=== PATIENT | female | born 1945 | race African-American/Black ===

== ENCOUNTER 2017-06-12 18:29 | Emergency (ER) | payer MEDICARE ==
[2017-06-12] MEDS ORDERED: Metoprolol Tartrate 5 MG/5 ML VIAL ONE ×2 (18:54→20:05)
[2017-06-12 19:20] LABS: #Lymphocytes 2.2 thou/uL (1.20-3.40); #Monocytes 0.5 thou/uL (0.11-0.59); #Neutrophils 3.3 thou/uL (1.40-6.50); %Basophils 0.8 % (0.0-1.0); %Eosinophils 0.1 % (0.0-10.0); %Lymphocytes 36.5 % (21.0-51.0); %Monocytes 8.2 % (0.0-10.0); %Neutrophils 54.4 % (42.0-75.0); Hemoglobin 13.9 g/dL (12.0-16.0); Mean Corpuscular HGB CONC 32.1 g/dL (32.0-36.0); Mean Corpuscular Hemoglobin 30.7 pg (27.0-31.0); Mean Corpuscular Volume 95.8 fl (81.0-99.0); Mean Platelet Volume 7.8 fL (7.4-10.4); Platelet Count 259 thou/uL (130-400); RBC Distribution Width 12.9 % (11.5-14.5); Red Blood Cell (RBC) Count 4.54 mill/uL (4.20-5.40)
[2017-06-12 19:35] LABS: ALT (SGPT) 11 U/L (8-55); AST (SGOT) 18 U/L (5-34); Albumin 3.9 g/dL (3.4-4.8); Alkaline Phosphatase 88 U/L (40-150); Anion Gap 17 mmol/L (10-20); BUN (Urea Nitrogen) 22 mg/dL (9.8-20.1); Bilirubin, Total 0.9 mg/dL (0.2-1.2); CK (CPK) 64 U/L (29-168); Calc. Creatinine Clearance 0 mL/min (70-130); Calcium 9.3 mg/dL (7.8-10.44); Carbon Dioxide 23 mmol/L (23-31); Chloride 101 mmol/L (98-107); Estimated GFR-MDRD 54; Globulin 3.9 g/dL (2.4-3.5); Glucose 129 mg/dL (83-110); Lipase 43 U/L (8-78); Potassium 3.9 mmol/L (3.5-5.1); Protein, Total 7.8 g/dL (6.0-8.3); Sodium 137 mmol/L (136-145)
[2017-06-12 19:36] LABS: CKMB 0.7 ng/mL (0-6.6); Troponin I 0.019 ng/mL (< 0.028)
--- NOTE | 2017-06-12 19:39 | RAD ---
CHEST ONE VIEW 06/12/17 HISTORY: Chest pain. Chest tightness. Hypertension. COMPARISON: None. FINDINGS: There appears to be air underneath the left and right hemidiaphragm. Possibility of pneumoperitoneum cannot be excluded. Abdomen and pelvic CT is recommended. Sternotomy wires are identified. Atherosclerosis of the aorta. Heart is enlarged. Pulmonary vessels a re slightly prominent. Small left sided pleural effusion with adjacent parenchymal changes. No pneumo thorax. IMPRESSION: 1. Questionable pneumoperitoneum. Abdomen and pelvic CT is recommended. 2. Left pleural effusion with adjacent parenchymal changes. POS: [facility]
== END 2017-06-12 20:34 | disposition short-term general hospital (02) ==
LOC: NAV ERS 18:29
DX: I10 Essential (primary) hypertension (principal); E03.9 Hypothyroidism, unspecified; E78.5 Hyperlipidemia, unspecified; I25.10 Atherosclerotic heart disease of native coronary artery without angina pectoris; K21.9 Gastro-esophageal reflux disease without esophagitis; Z79.899 Other long term (current) drug therapy
CPT/HCPCS: 71010; 80053; 82553; 83690; 83880; 84484; 85025; 93005; 96374; 96376

== ENCOUNTER 2018-06-03 16:56 | Emergency (ER) | payer MEDICARE ==
[2018-06-03] MEDS ORDERED: cloNIDine 0.1 MG TAB ONE (18:46)
[2018-06-03 18:47] LABS: #Lymphocytes 2.4 thou/uL (1.20-3.40); #Monocytes 0.4 thou/uL (0.11-0.59); #Neutrophils 2.5 thou/uL (1.40-6.50); %Basophils 0.7 % (0.0-1.0); %Eosinophils 0.5 % (0.0-10.0); %Lymphocytes 44.6 % (21.0-51.0); %Monocytes 7.5 % (0.0-10.0); %Neutrophils 46.6 % (42.0-75.0); Hemoglobin 13.9 g/dL (12.0-16.0); Mean Corpuscular HGB CONC 32.4 g/dL (32.0-36.0); Mean Corpuscular Hemoglobin 31.2 pg (27.0-31.0); Mean Corpuscular Volume 96.1 fL (78.0-98.0); Mean Platelet Volume 7.2 fL (7.4-10.4); Platelet Count 218 thou/uL (130-400); Red Blood Cell (RBC) Count 4.46 mill/uL (4.20-5.40); White Blood Cell (WBC) Count 5.4 thou/uL (4.8-10.8)
[2018-06-03 19:08] LABS: ALT (SGPT) 10 U/L (8-55); AST (SGOT) 15 U/L (5-34); Alkaline Phosphatase 76 U/L (40-150); Anion Gap 14 mmol/L (10-20); BUN (Urea Nitrogen) 11 mg/dL (9.8-20.1); Bilirubin, Total 1.1 mg/dL (0.2-1.2); Calc. Creatinine Clearance 0 mL/min (70-130); Calcium 9.7 mg/dL (7.8-10.44); Carbon Dioxide 25 mmol/L (23-31); Chloride 102 mmol/L (98-107); Estimated GFR-MDRD 56; Globulin 3.3 g/dL (2.4-3.5); Glucose 108 mg/dL (83-110); Potassium 3.9 mmol/L (3.5-5.1); Protein, Total 7.3 g/dL (6.0-8.3); Sodium 137 mmol/L (136-145)
[2018-06-03 19:10] LABS: Troponin I 0.019 ng/mL (< 0.028)
[2018-06-03] MEDS ORDERED: Carvedilol 3.125 MG TAB ONE (19:22)
[2018-06-03] MEDS ORDERED: hydrALAZINE 20 MG/ML VIAL ONE (19:45)
--- NOTE | 2018-06-03 19:54 | RAD ---
TWO VIEWS CHEST 06/03/18 HISTORY: High blood pressure and chest pain. FINDINGS: Mild blunting of the left costophrenic angle suggests small volume left pleural fluid and/or pleural scar. Midline sternotomy wires are noted. There is atherosclerotic calcification of the aortic arch. There is no pneumothorax, lobar consolidation or alveolar edema. IMPRESSION: Mild blunting of the left costophrenic angle. POS: [facility]
--- NOTE | 2018-06-03 20:42 | CT ---
CT OF THE HEAD WITHOUT CONTRAST: 06/03/18 COMPARISON: 08/05/12. HISTORY: Headache and chest tightness, hypertension and dementia. TECHNIQUE: Axial CT imaging at 5 mm intervals from vertex through skull base without contrast. FINDINGS: There is atherosclerotic calcification of the cavernous carotid arteries. No acute osseous abnormalit y. Imaged paranasal sinuses/mastoid air cells grossly unremarkable. No intracranial hemorrhage, midl ine shift, mass effect or ventricular enlargement. IMPRESSION: No acute findings. POS: [facility]
[2018-06-03 23:20] LABS: Troponin I 0.028 ng/mL (< 0.028)
[2018-06-04] MEDS ORDERED: Losartan Potassium 50 MG TAB ONE (07:01)
[2018-06-04] MEDS ORDERED: Carvedilol 3.125 MG TAB ONE (07:01)
[2018-06-04] MEDS ORDERED: Hydrochlorothiazide 25 MG TAB ONE (07:01)
== END 2018-06-04 07:31 | disposition short-term general hospital (02) ==
LOC: NAV ERS 16:56
DX: R07.89 Other chest pain (principal); F03.90 Unspecified dementia, unspecified severity, without behavioral disturbance, psychotic disturbance, mood disturbance, and anxiety; I16.0 Hypertensive urgency; I25.10 Atherosclerotic heart disease of native coronary artery without angina pectoris; E03.9 Hypothyroidism, unspecified; E78.5 Hyperlipidemia, unspecified; I10 Essential (primary) hypertension; K21.9 Gastro-esophageal reflux disease without esophagitis; Z79.899 Other long term (current) drug therapy
CPT/HCPCS: 36415; 70450; 71046; 80053; 84443; 84484; 85025; 93005; 94760; 96374; J0360

== ENCOUNTER 2018-09-01 14:56 | Emergency (ER) | payer MEDICARE ==
--- NOTE | 2018-09-01 16:22 | RAD ---
TWO VIEW RIGHT HUMERUS TWO VIEW RIGHT ELBOW: Indication: Fall with injury, pain. FINDINGS: There is moderate osteoarthritis. No acute humeral fracture. Frontal and lateral views of the elbow r eveal no displaced fracture or joint capsular distention. IMPRESSION: No acute osseous abnormality. POS: [facility]
== END 2018-09-01 16:50 | disposition home or self-care (01) ==
LOC: NAV ERS 14:56
DX: M79.601 Pain in right arm (principal); I10 Essential (primary) hypertension; I25.10 Atherosclerotic heart disease of native coronary artery without angina pectoris; E03.9 Hypothyroidism, unspecified; E78.5 Hyperlipidemia, unspecified; K21.9 Gastro-esophageal reflux disease without esophagitis; Z79.899 Other long term (current) drug therapy; W06.XXXA Fall from bed, initial encounter

== ENCOUNTER 2019-01-26 13:40 | Emergency (ER) | payer MEDICARE ==
[2019-01-26 15:25] LABS: #Eosinphils 0.1 thou/uL (0.0-0.7); #Monocytes 0.5 thou/uL (0.11-0.59); #Neutrophils 2.1 thou/uL (1.40-6.50); %Basophils 0.8 % (0.0-1.0); %Eosinophils 1.3 % (0.0-10.0); %Lymphocytes 42.6 % (21.0-51.0); %Monocytes 11.5 % (0.0-10.0); %Neutrophils 43.8 % (42.0-75.0); Hemoglobin 11.3 g/dL (12.0-16.0); Mean Corpuscular HGB CONC 32.9 g/dL (32.0-36.0); Mean Corpuscular Hemoglobin 30.2 pg (27.0-31.0); Mean Platelet Volume 6.8 fL (7.4-10.4); Platelet Count 198 thou/uL (130-400); Red Blood Cell (RBC) Count 3.75 mill/uL (4.20-5.40); White Blood Cell (WBC) Count 4.7 thou/uL (4.8-10.8)
[2019-01-26 15:31] LABS: ALT (SGPT) 10 U/L (8-55); AST (SGOT) 14 U/L (5-34); Albumin 3.6 g/dL (3.4-4.8); Alkaline Phosphatase 84 U/L (40-150); Anion Gap 14 mmol/L (10-20); BUN (Urea Nitrogen) 22 mg/dL (9.8-20.1); Bilirubin, Total 0.6 mg/dL (0.2-1.2); Calc. Creatinine Clearance 0 mL/min (70-130); Calcium 8.8 mg/dL (7.8-10.44); Carbon Dioxide 26 mmol/L (23-31); Chloride 100 mmol/L (98-107); Estimated GFR-MDRD 34; Globulin 3.3 g/dL (2.4-3.5); Glucose 104 mg/dL (83-110); Magnesium 2.1 mg/dL (1.6-2.6); Potassium 3.5 mmol/L (3.5-5.1); Protein, Total 6.9 g/dL (6.0-8.3); Sodium 136 mmol/L (136-145)
== END 2019-01-26 16:28 | disposition home or self-care (01) ==
LOC: NAV ERS 13:40
DX: E86.0 Dehydration (principal); R79.89 Other specified abnormal findings of blood chemistry; I25.10 Atherosclerotic heart disease of native coronary artery without angina pectoris; E03.9 Hypothyroidism, unspecified; E78.5 Hyperlipidemia, unspecified; I10 Essential (primary) hypertension; K21.9 Gastro-esophageal reflux disease without esophagitis; Z79.899 Other long term (current) drug therapy
CPT/HCPCS: 80053; 83735; 85025; 93005; 94760

== ENCOUNTER 2020-02-29 18:04 | Emergency (ER) | payer MEDICARE ==
[~2020-02-29 18:04] MED LIST: Iopamidol 370 76% 100 ML VIAL ONE
--- NOTE | 2020-02-29 18:44 | CT ---
CT BRAIN WITHOUT CONTRAST: History: Altered mental status Comparison: 06-03-18 FINDINGS: No acute hemorrhage or infarct. No midline shift or mass effect. Mild atrophy. Moderate volume fluid within the left mastoids. Remainder of the Paranasal sinuses are clear. IMPRESSION: Chronic findings. No acute hemorrhage or infarct. POS: [facility]
[2020-02-29 18:45] LABS: INR-International Normal Ratio 1.1; PTT 32.2 sec (22.9-36.1); Prothrombin Time 14.1 sec (12.0-14.7)
[2020-02-29 18:54] LABS: ALT (SGPT) 9 U/L (8-55); AST (SGOT) 17 U/L (5-34); Albumin 3.7 g/dL (3.4-4.8); Alkaline Phosphatase 54 U/L (40-110); Anion Gap 16 mmol/L (10-20); BUN (Urea Nitrogen) 13 mg/dL (9.8-20.1); Calc. Creatinine Clearance 0 mL/min (70-130); Calcium 8.8 mg/dL (7.8-10.44); Carbon Dioxide 24 mmol/L (23-31); Chloride 95 mmol/L (98-107); Estimated GFR-MDRD 23; Globulin 3.2 g/dL (2.4-3.5); Glucose 118 mg/dL (83-110); Protein, Total 6.9 g/dL (6.0-8.3); Sodium 132 mmol/L (136-145)
[2020-02-29 18:56] LABS: Acetaminophen Less than 6.0 mcg/mL (10.0-30.0); Alcohol Less than 10 mg/dL (Less than 10); Lipase 58 U/L (8-78); Salicylate Less than 8.0 mg/dL (15.0-30.0)
[2020-02-29 19:11] LABS: CKMB 0.7 ng/mL (0-6.6); Mean Corpuscular HGB CONC 32.9 g/dL (32.0-36.0); Mean Corpuscular Hemoglobin 33.2 pg (27.0-31.0); Mean Platelet Volume 6.9 fL (7.4-10.4); Platelet Count 184 thou/uL (130-400); RBC Distribution Width 13.9 % (11.5-14.5); Red Blood Cell (RBC) Count 3.32 mill/uL (4.20-5.40); White Blood Cell (WBC) Count 4.4 thou/uL (4.8-10.8)
--- NOTE | 2020-02-29 19:11 | CT ---
Exam: CTA neck with contrast CTA head with contrast HISTORY: Altered mental status COMPARISON: None TECHNIQUE: 1. Multiple contiguous axial images were obtained and a CTA of the neck with contrast. 3-D sagittal a nd coronal MIP reformats were performed. 2. Multiple contiguous axial images were obtained and a CTA of the head with contrast. 3-D sagittal a nd coronal MIP reformats were performed. FINDINGS: CTA NECK: Aortic arch: Normal origin of the carotid arteries from the arch. No significant atherosclerotic dise ase of the subclavian arteries. Right common carotid artery: No significant atherosclerotic disease or narrowing Left common carotid artery: No significant atherosclerotic disease or narrowing Right internal carotid artery: Mild proximal atherosclerotic disease with less than 10% stenosis per NASCET criteria Right external carotid artery: No significant atherosclerotic disease or narrowing Left internal carotid artery: Mild proximal atherosclerotic disease with less than 10% stenosis per NASCET criteria Left external carotid artery: No significant atherosclerotic disease or narrowing Right cervical vertebral artery: No significant atherosclerotic disease or narrowing Left cervical vertebral artery: No significant atherosclerotic disease or narrowing No cervical adenopathy. The lung apices are unremarkable. Degenerative changes are seen in the spine. The patient is status post sternotomy. CTA HEAD: Moderate diffuse nonfocal atherosclerotic disease is seen in the cavernous portion of both internal c arotid arteries. Right intracranial internal carotid artery: Patent without narrowing or occlusion Right anterior cerebral artery: Patent without narrowing or occlusion Right middle cerebral artery: Patent without narrowing or occlusion Left intracranial internal carotid artery: Patent without narrowing or occlusion Left anterior cerebral artery: Patent without narrowing or occlusion Left middle cerebral artery: Patent without narrowing or occlusion No aneurysmal dilatation is seen in the anterior circulation. Right vertebral artery: Patent without narrowing or occlusion Left vertebral artery: Patent without narrowing or occlusion Basilar artery: Patent without narrowing or occlusion The posterior cerebral arteries and cerebellar arteries are patent without narrowing or occlusion. No aneurysmal dilatation is seen in the posterior circulation. IMPRESSION: 1. Mild atherosclerotic disease surrounding both carotid bifurcations without evidence of hemodynamic ally significant stenosis 2. No significant CTA abnormality of the head
[2020-02-29 19:12] LABS: Potassium 2.9 mmol/L (3.5-5.1)
[2020-02-29 19:23] LABS: #Lymphocytes 2.2 thou/uL (1.20-3.40); #Monocytes 0.2 thou/uL (0.11-0.59); #Neutrophils 2.1 thou/uL (1.40-6.50); %Basophils 0.9 % (0.0-1.0); %Eosinophils 0.7 % (0.0-10.0); %Lymphocytes 47.8 % (21.0-51.0); %Monocytes 4.2 % (0.0-10.0); %Neutrophils 46.5 % (42.0-75.0)
[2020-02-29] MEDS ORDERED: Potassium Chloride 20 MEQ TAB ONE (19:24)
[2020-02-29] MEDS ORDERED: Sodium Chloride 0.9% 1,000 ML ONE (19:24)
[2020-02-29] MEDS ORDERED: Aspirin Chewable 81 MG TAB ONE (19:24)
--- NOTE | 2020-02-29 19:37 | RAD ---
EXAM: Single view of the chest HISTORY: Altered mental status COMPARISON: 06/12/2017 FINDINGS: Single view of the chest shows an enlarged but stable cardiomediastinal silhouette. The pa tient is status post sternotomy. There is obscurity of the left hemidiaphragm which may represent a pleural effusion and/or infiltrate. Degenerative changes are seen in the spine. IMPRESSION: Left pleural effusion versus infiltrate
[2020-02-29 19:38] LABS: Bilirubin Negative (Negative); Blood, Urine Small (Negative); Clarity Slightly Cloudy (Clear); Glucose, Urine (Dipstick) Negative (Negative); Ketone, Urine Negative (Negative); Leukocyte Small (Negative); Nitrite Negative (Negative); Protein, Urine (Dipstick) Negative (Neg-Trace)
[2020-02-29 19:47] LABS: Amphetamine Not Detected (NotDetected); Barbiturates Screen Not Detected (NotDetected); Benzodiazepine Screen Not Detected (NotDetected); Cocaine Metabolite Screen Not Detected (NotDetected); Medtox Control Line Valid? VALID (VALID); Methadone Not Detected (NotDetected); Methamphetamine Not Detected (NotDetected); Opiate Screen Not Detected (NotDetected); Oxycodone Screen Not Detected (NotDetected); Phencyclidine (PCP) Not Detected (NotDetected); THC/Cannabinoid Screen Not Detected (NotDetected); Tricyclic Screen Not Detected (NotDetected)
[2020-02-29 19:47] LABS: Bacteria/HPF 4+ HPF (None Seen); RBC/HPF 0-3 HPF (0-3); Squamous Epithelial 0-3 HPF (0-3)
== END 2020-02-29 20:25 | disposition short-term general hospital (02) ==
LOC: NAV ERS 18:04
DX: R55 Syncope and collapse (principal); R00.1 Bradycardia, unspecified; F03.90 Unspecified dementia, unspecified severity, without behavioral disturbance, psychotic disturbance, mood disturbance, and anxiety; D64.9 Anemia, unspecified; E87.6 Hypokalemia; E87.1 Hypo-osmolality and hyponatremia; N19 Unspecified kidney failure; I25.10 Atherosclerotic heart disease of native coronary artery without angina pectoris; E03.9 Hypothyroidism, unspecified; E78.5 Hyperlipidemia, unspecified; I10 Essential (primary) hypertension; K21.9 Gastro-esophageal reflux disease without esophagitis; Z79.899 Other long term (current) drug therapy
CPT/HCPCS: 36416; 51701; 70450; 70496; 71045; 80053; 80306; 80307; 81003; 81015; 82553; 83690; 84443; 84484; 85025; 85610; 85730; 93005; 96360; J7050; Q9967

== ENCOUNTER 2020-05-19 22:25 | Emergency (ER) | payer MEDICARE ==
[2020-05-19 22:54] LABS: #Eosinphils 0.1 thou/uL (0.0-0.7); #Lymphocytes 2.5 thou/uL (1.20-3.40); #Monocytes 0.4 thou/uL (0.11-0.59); #Neutrophils 2.3 thou/uL (1.40-6.50); %Basophils 0.7 % (0.0-1.0); %Lymphocytes 47.5 % (21.0-51.0); %Monocytes 8.1 % (0.0-10.0); %Neutrophils 42.7 % (42.0-75.0); Hemoglobin 12.3 g/dL (12.0-16.0); Mean Corpuscular HGB CONC 33.7 g/dL (32.0-36.0); Mean Corpuscular Hemoglobin 32.3 pg (27.0-31.0); Mean Corpuscular Volume 95.9 fL (78.0-98.0); Mean Platelet Volume 6.7 fL (7.4-10.4); Platelet Count 234 thou/uL (130-400); RBC Distribution Width 12.3 % (11.5-14.5); Red Blood Cell (RBC) Count 3.82 mill/uL (4.20-5.40); White Blood Cell (WBC) Count 5.3 thou/uL (4.8-10.8)
--- NOTE | 2020-05-19 23:00 | RAD ---
Chest one view HISTORY: Chest pain. COMPARISON: 02/29/2020. FINDINGS: Cardiac silhouette is magnified by projection. Pulmonary vasculature is unremarkable. Mediastinum is midline with postoperative changes and aortic calcification. Ill-defined linear parenchymal opacity at the left base and blunting of the left lateral costophrenic angle are similar in appearance to the prior study. No lobar consolidation or evidence of pneumothorax. IMPRESSION : Chronic parenchymal scarring and pleural thickening at the left base are stable. Atherosclerosis.
[2020-05-19 23:08] LABS: ALT (SGPT) Less than 6 U/L (8-55); AST (SGOT) 13 U/L (5-34); Albumin 3.5 g/dL (3.4-4.8); Alkaline Phosphatase 73 U/L (40-110); Anion Gap 17 mmol/L (10-20); BUN (Urea Nitrogen) 20 mg/dL (9.8-20.1); Bilirubin, Total 0.7 mg/dL (0.2-1.2); Calc. Creatinine Clearance 0 mL/min (70-130); Calcium 8.6 mg/dL (7.8-10.44); Carbon Dioxide 21 mmol/L (23-31); Chloride 98 mmol/L (98-107); Estimated GFR-MDRD 17; Globulin 3.9 g/dL (2.4-3.5); Glucose 112 mg/dL (83-110); Protein, Total 7.4 g/dL (6.0-8.3); Sodium 133 mmol/L (136-145)
[2020-05-19 23:09] LABS: Potassium 2.8 mmol/L (3.5-5.1)
[2020-05-19] MEDS ORDERED: Potassium Chloride 20 MEQ TAB ONE (23:16)
[2020-05-19 23:25] LABS: CKMB 0.2 ng/mL (0-6.6)
[2020-05-19] MEDS ORDERED: Aspirin Chewable 81 MG TAB ONE (23:41)
[2020-05-20] MEDS ORDERED: Sodium Chloride 0.9% 2,000 ML ONE (04:01)
== END 2020-05-20 06:13 | disposition short-term general hospital (02) ==
LOC: NAV ERS 22:25
DX: R07.9 Chest pain, unspecified (principal); N17.9 Acute kidney failure, unspecified; E87.6 Hypokalemia; E03.9 Hypothyroidism, unspecified; E78.5 Hyperlipidemia, unspecified; I10 Essential (primary) hypertension; K21.9 Gastro-esophageal reflux disease without esophagitis; Z79.899 Other long term (current) drug therapy
CPT/HCPCS: 71045; 80053; 82553; 83880; 84484; 85025; 85379; 93005; J7050

== ENCOUNTER 2024-08-03 12:39 | Emergency (ER) | payer MEDICARE | END 2024-08-03 13:10 | disposition home or self-care (01) | LOC: NAV ERS 12:39 | DX: S00.83XA Contusion of other part of head, initial encounter (principal); I25.10 Atherosclerotic heart disease of native coronary artery without angina pectoris; E78.5 Hyperlipidemia, unspecified; I10 Essential (primary) hypertension; Z79.899 Other long term (current) drug therapy; Z79.82 Long term (current) use of aspirin; X58.XXXA Exposure to other specified factors, initial encounter | CPT/HCPCS: 99283 ==

== ENCOUNTER 2024-08-28 14:10 | Emergency (ER) | payer MEDICARE ==
[2024-08-28] MEDS ORDERED: Aspirin Chewable 81 MG TAB ONE (14:44)
[2024-08-28 14:51] LABS: INR-International Normal Ratio 1.1
[2024-08-28 14:52] LABS: PTT 28.1 sec (22.9-36.1)
[2024-08-28 15:01] LABS: ALT (SGPT) 8 U/L (Less than 34); AST (SGOT) 16 U/L (11-34); Albumin 3.5 g/dL (3.1-4.5); Alkaline Phosphatase 93 U/L (40-110); Anion Gap 15 mmol/L (10-20); BUN (Urea Nitrogen) 18 mg/dL (9.8-20.1); Bilirubin, Total 0.9 mg/dL (0.3-1.2); Calc. Creatinine Clearance 0 mL/min (70-130); Carbon Dioxide 20 mmol/L (23-31); Chloride 108 mmol/L (98-107); Estimated GFR 40; Globulin 3.8 g/dL (2.4-3.5); Glucose 111 mg/dL (83-110); Lipase 41 U/L (8-78); Potassium 4.1 mmol/L (3.5-5.1); Protein, Total 7.3 g/dL (5.8-8.1); Sodium 139 mmol/L (136-145); Troponin I 0.015 ng/mL (< 0.028)
[2024-08-28 15:03] LABS: #Eosinophils 0.1 thou/uL (0.0-0.7); #Lymphocytes 2.3 thou/uL (1.20-3.40); #Monocytes 0.3 thou/uL (0.11-0.59); #Neutrophils 2.6 thou/uL (1.40-6.50); %Basophils 0.8 % (0.0-1.0); %Eosinophils 1.6 % (0.0-10.0); %Lymphocytes 43.1 % (21.0-51.0); %Neutrophils 48.5 % (42.0-75.0); Hematocrit 32.2 % (36.0-47.0); Hemoglobin 10.3 g/dL (12.0-16.0); Mean Corpuscular HGB CONC 32.1 g/dL (32.0-36.0); Mean Platelet Volume 6.7 fL (7.4-10.4); Platelet Count 165 10x3/uL (130-400); RBC Distribution Width 15.7 % (11.5-14.5); Red Blood Cell (RBC) Count 2.87 mill/uL (4.20-5.40); White Blood Cell (WBC) Count 5.4 10x3/uL (4.8-10.8)
[2024-08-28 17:54] LABS: Troponin I 0.017 ng/mL (< 0.028)
== END 2024-08-28 18:15 | disposition home or self-care (01) ==
LOC: NAV ERS 14:10
DX: R07.89 Other chest pain (principal); I25.10 Atherosclerotic heart disease of native coronary artery without angina pectoris; I10 Essential (primary) hypertension; E78.5 Hyperlipidemia, unspecified; Z79.82 Long term (current) use of aspirin; Z79.899 Other long term (current) drug therapy; Z91.89 Other specified personal risk factors, not elsewhere classified
CPT/HCPCS: 71045; 80053; 83690; 84484; 85025; 85610; 85730; 93005; 94760